=== PATIENT | female | born 1965 | race Two or more races ===

== ENCOUNTER 2021-10-28 09:57 | Emergency (ER) | payer SELFPAY ==
[~2021-10-28] VITALS: Ht 162.6 cm; Wt 72.6 kg
[2021-10-28] MEDS ORDERED: SODIUM CHLORIDE 0.9% 1,000 ML IV ONE ×2 (10:45)
[2021-10-28] MEDS ORDERED: KETOROLAC TROMETH 30 MG/ML 1ML VIAL IV ONE (10:45)
[2021-10-28 10:49] LABS: Basophils # (auto) 0.1 10 ^3/uL (0-0.2); Basophils % (auto) 0.8 % (0.0-2.0); Eosinophils # (auto) 0.1 10 ^3/uL (0-0.8); Eosinophils % (auto) 0.7 % (0.0-7.0); Hematocrit 38.5 % (36.0-46.0); Hemoglobin 13.5 g/dL (12.2-16.2); Lymphocytes # (auto) 1.8 10 ^3/uL (0.4-5.4); Lymphocytes % (auto) 18.6 % (10.0-50.0); Mean Corpuscular Hemoglobin 30.4 pg (28.0-32.0); Mean Corpuscular Hgb Conc. 35.2 g/dL (32.0-36.0); Mean Corpuscular Volume 86.3 fL (80.0-100.0); Monocytes # (auto) 0.3 10 ^3/uL (0-1.3); Monocytes % (auto) 3.5 % (0.0-12.0); Neutrophils # (auto) 7.3 10 ^3/uL (1.6-8.6); Neutrophils % (auto) 76.4 % (37.0-80.0); Red Blood Cells 4.46 10^6/uL (4.0-5.20); Red Cell Distribution Width 12.4 % (11.8-14.3); White Blood Cell 9.5 10^3/uL (4.4-10.8)
[2021-10-28 11:09] LABS: Albumin 3.9 g/dL (3.4-5.0); BUN/Creatinine Ratio 12.8; Potassium 3.6 mmol/L (3.5-5.1)
[2021-10-28 11:12] LABS: Bilirubin, Total 0.7 mg/dL (0.2-1.0); Total Protein 7.8 g/dL (6.4-8.2)
[2021-10-28 13:09] LABS: Urine Bacteria NONE SEEN /hpf (None Seen); Urine Blood Negative /uL (Negative); Urine Specific Gravity 1.009 (1.001-1.035); Urine WBC 2 /hpf (0 - 5)
[2021-10-28 13:30] VITALS: BP 138/88
[2021-10-28] MEDS ORDERED: HYDR-4902 PO (13:38)
== END 2021-10-28 15:17 | disposition home or self-care (01) ==
LOC: ER 09:57
DX: N20.0 Calculus of kidney (principal); I10 Essential (primary) hypertension; Z90.710 Acquired absence of both cervix and uterus
CPT/HCPCS: 36415; 74176; 80053; 81001; 85025; 96361; 96374; 99285; J1885; J7030